=== PATIENT | female | born 1945 | race Asian ===

== ENCOUNTER 2019-05-25 07:51 | Day surgery (SDC) | payer MEDICARE, MEDICAID ==
[2019-05-25] VITALS (8 sets, daily range): BP systolic 113–131; BP diastolic 54–78
[~2019-05-25] VITALS: Ht 167.6 cm; Wt 77.1 kg
[~2019-05-25 07:51] MED LIST: LR 1000ml 1,000 ML IVLG SCH
--- NOTE | 2019-05-25 08:45 | NUR ---
IV fluids started by Dr. Padron and infusing well.
--- NOTE | 2019-05-25 08:47 | Short Stay Surgery H&P ---
History of Present Illness History of Present Illness Chief Complaint Gastro-esophageal reflux and screening colonoscopy. 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 Endoscopies with possible biopsy Preop Interventions None Summary of Findings See the reports Attestation Are the patient's medical conditions optimized for surgery? Attestation Response: yes Tyler Mccarty MD May 25, 2019 08:47
--- NOTE | 2019-05-25 08:48 | Pre-Procedure Note/Attestation ---
Pre-Procedure Note/Attestation Complete Prior to Procedure Planned Procedure: left Procedure Narrative: Examiantion of the upper and the lower GI tract via endoscopy Indications for Procedure Pre-Operative Diagnosis: R/O Gastritis/esophagitis/colon polyp Attestation I attest that I discussed the nature of the procedure; its benefits; risks and complications; and alternatives (and the risks and benefits of such alternatives ), prior to the procedure, with the patient (or the patient's legal players club representative). I attest that, if there was a reasonable possibility of needing a blood transfusion, the patient (or the patient's legal players club representative) was given the [facility] standardized written summary, pursuant to the [employer] Blood Safety Act ([place] Health and Safety Code # 1645, as amended). I attest that I re-evaluated the patient just prior to the surgery and that there has been no change in the patient's H&P, except as documented below: Tyler Mccarty MD May 25, 2019 08:48
[2019-05-25] MEDS ORDERED: ENBREL50 MG/1 M1 SUBQ (08:51)
[2019-05-25] MEDS ORDERED: FOLIC ACID1 MG ORAL (08:52)
[2019-05-25] MEDS ORDERED: CARVEDILOL3.125 MG ORAL (08:53)
[2019-05-25] MEDS ORDERED: AMLODIPINE BESY10 MG ORAL (08:57)
[2019-05-25] MEDS ORDERED: MELOXICAM15 MG PO (08:57)
[2019-05-25] MEDS ORDERED: METHOTREXATE2.5 MG PO (08:58)
[2019-05-25] MEDS ORDERED: CICLOPIROX 8%34.6 ML TP (08:59)
[2019-05-25] MEDS ORDERED: fentaNYL 100 mcg/2 mL IV ONE ×2 (09:00)
[2019-05-25] MEDS ORDERED: Midazolam 2mg/2ml Inj ONE (09:00)
[2019-05-25] MEDS ORDERED: LR 1000ml ONE (09:00)
[2019-05-25] MEDS ORDERED: Propofol 200mg/20ml IV ONE (09:00)
--- NOTE | 2019-05-25 09:14 | Anethesia Preoperative Eval ---
Anesthesia Pre-op PMH/ROS General Date of Evaluation: May 25, 2019 Time of Evaluation: 08:40 Anesthesiologist: Vito ASA Score: ASA 2 Mallampati Score Class I : Soft palate, uvula, fauces, pillars visible Class II: Soft palate, uvula, fauces visible Class III: Soft palate, base of uvula visible Class IV: Only hard plate visible Mallampati Classification: Class II Surgeon: Curly Diagnosis: Abdominal pain Surgical Procedure: EGD Colonoscopy Anesthesia History: none Family History: no anesthesia problems Allergies: Coded Allergies: No Known Allergies (Unverified , 05/24/19) Medications: see eMAR Patient NPO?: Yes Past Medical History Cardiovascular: Reports: HTN; Denies: CAD, UT, valve dz, arrhythmia, other Pulmonary: Denies: asthma, COPD, KAYE, other Gastrointestinal/Genitourinary: Reports: GERD; Denies: CRI, ESRD, other Neurologic/Psychiatric: Reports: depression/anxiety; Denies: dementia, CVA, TIA, other Endocrine: Denies: DM, hypothyroidism, steroids, other HEENT: Reports: cataract (L), cataract (R) - s/p Sx Hematology/Immune: Denies: anemia, DVT, bleeding disorder, other Musculoskeletal/Integumentary: Denies: OA, RA, DJD, DDD, edema, other PMH Narrative: As above PSxH Narrative: Hysterectomy bilateral cataracts Anesthesia Pre-op Phys. Exam Physician Exam Last Vital Signs Date Time Temp Pulse Resp B/P (MAP) Pulse Ox O2 Delivery O2 Flow Rate FiO2 05/25/19 08:48 97.0 83 18 131/78 98 Room Air Constitutional: NAD Neurologic: CN 2-12 intact Cardiovascular: RRR, no M/R/G Respiratory: CTA Gastrointestinal: S/NT/ND Airway Exam Mallampati Score: Class II MO: full Neck: flexible ROM: full Dentures: no upper, no lower Anesthesia Pre-op A/P Risk Assessment & Plan Assessment: ASA 2 Plan: Catrachito Gomez MD May 25, 2019 09:14
[2019-05-25] MEDS ORDERED: fentaNYL 100 mcg/2 mL IV PRN (09:15)
--- NOTE | 2019-05-25 09:23 | Endoscopy Procedure Note ---
Endoscopy Procedure Note General Indication for Procedure: GERDs anad abdominal pains , screening colonoscopy Procedures Performed: EGD - Mild gastritis and possible debbie esophagus, biopsy obtained from gastric body with esopohageal brushing., colonoscopy - Internal hemorrhoids;otherwise normal total colosnoscopy upto the base of the cecum. Specimen: yes Pt Tolerated Procedure Well: Yes Estimated Blood Loss: none Anesthesia Anesthesiologist: Dr. Padron Anesthesia: moderate sedation Medications Medication Given: see anesthesia record Inserted Devices Implant(s) used?: No Quality Quality of Bowel Preparation: Excellent Did scope reach the cecum?: Yes Was there any complications?: No GI Core Measures 50 yrs or older w/o bx or poly: Yes 10yrs. F/U recommended: Yes If not recommended, why?: 18 years or older w/prev. colo: No <3yrs. since last colonoscopy: No Med reason:<3 yrs.: System Reason:<3 yrs.: Last colonoscopy >= to 3yrs: Yes Tyler Mccarty MD May 25, 2019 09:23
--- NOTE | 2019-05-25 09:24 | Discharge Instructions ---
Discharge Instructions Discharge Instructions Follow up with: Visit the doctor in office after 2 weeks For Congestive Heart Failure Reminder Report to your physician any weight gain of 5 pounds or more in one week. Tyler Mccarty MD May 25, 2019 09:24
--- NOTE | 2019-05-25 09:33 | Immediate Post-Op Evaluation ---
Immediate Post-Op Evalulation Immediate Post-Op Evalulation Procedure: EGD Colonoscopy Date of Evaluation: May 25, 2019 Time of Evaluation: 09:32 IV Fluids: 600 Blood Products: none Estimated Blood Loss: none Urinary Output: none Blood Pressure Systolic: 116 Blood Pressure Diastolic: 72 Pulse Rate: 68 Respiratory Rate: 20 O2 Sat by Pulse Oximetry: 98 Temperature (Fahrenheit): 97.6 Pain Score (1-10): 1 Nausea: No Vomiting: No Complications none Patient Status: reacts, patent, none Hydration Status: adequate Catrachito Padron MD May 25, 2019 09:33
[2019-05-25] MEDS ORDERED: LR 1000ml 1,000 ML IVLG SCH (10:00)
--- NOTE | 2019-05-25 10:32 | 48 Hour Post Anesthesia Eval ---
Post Anesthesia Evaluation Procedure: EGD Colonoscopy Date of Evaluation: May 25, 2019 Time of Evaluation: 10:30 Blood Pressure Systolic: 116 0: 74 Pulse Rate: 68 Respiratory Rate: 20 Temperature (Fahrenheit): 97.6 O2 Sat by Pulse Oximetry: 98 Airway: patent Nausea: No Vomiting: No Pain Intensity: 1 Hydration Status: adequate Cardiopulmonary Status: stable Mental Status/LOC: patient returned to baseline Follow-up Care/Observations: n/a Post-Anesthesia Complications: none Follow-up care needed: ready to discharge Catrachito Padron MD May 25, 2019 10:32
--- NOTE | 2019-05-25 17:45 | Operative Note - Dictated ---
DATE OF OPERATION: 05/25/2019 SURGEON: Tyler Mccarty M.D. REFERRING PHYSICIAN: Dr. Nba Ricardo. PROCEDURE: Esophagogastroduodenoscopy with biopsy. PREOPERATIVE DIAGNOSIS: History of abdominal pain and gastroesophageal reflux. POSTOPERATIVE DIAGNOSIS: Evidence of mild gastritis. Biopsy was taken per random from gastric body and possible Catherine esophagus. Brushing of the esophagus was done. MEDICATION USED: Per anesthesiologist, Dr. Padron. INSTRUMENT: GIF Olympus upper GI video endoscope. DESCRIPTION OF PROCEDURE: The patient after arriving in the endoscopy unit, was told about risks and benefits of the procedure, which she accepted and signed informed consent. At this time, she was put on the left lateral decubitus position. After adequate IV sedation, the scope was gently passed through the esophagus and gradually advanced towards gastroesophageal junction. There was evidence of the exudative material over the esophagus, which was mostly washed out. However, there was some remnants of this whitish exudative material still seen to be involving the wall of the esophagus, which raised the question of possibility of underlying Catherine. Therefore, brushing of esophagus was done to basically rule out this condition. However, there was no any evidence of ulceration, stricture, varices, etc. GE junction also was completely within normal limits without evidence of hiatal hernia or Silva's. Scope at this time was advanced into the stomach. Gastric cavity was distended and gradually the areas of the fundus and the body and the antrum were examined. There was evidence of minimal gastritis in the body of the stomach, which was biopsied and the scope was subsequently passed through the pylorus, first and second portion of duodenum were examined, which looked normal. At this time, the scope was pulled back into the stomach. A retroflexion maneuver was applied. The area of the gastroesophageal junction was examined at a closer fashion, which revealed no particular other abnormalities. Finally, the scope was pulled out and the procedure was terminated. The patient tolerated the procedure well. Tyler Mccarty M.D. DR: SARAH JOB#: [id number] CC:
--- NOTE | 2019-05-25 18:00 | Operative Note - Dictated ---
DATE OF OPERATION: 05/25/2019 PROCEDURE: Total colonoscopy. PREOPERATIVE DIAGNOSIS: Screening colonoscopy. POSTOPERATIVE DIAGNOSIS: Minimal internal hemorrhoids, otherwise complete normal total colonoscopy up to the base of the cecum as examined. SURGEON: Tyler Mccarty M.D. REFERRING PHYSICIAN: . ANESTHESIOLOGIST: Catrachito Padron M.D. INSTRUMENT: GIF Olympus video colonoscope. DESCRIPTION OF PROCEDURE: The patient after arriving in the endoscopy unit, was told about risks and benefits of the procedure, which she accepted and signed informed consent. At this time, she was put in the left lateral decubitus position. After adequate IV sedation, the scope was gently passed through the anal area which revealed evidence of hemorrhoidal tag and minimal internal hemorrhoids of no great significance and there were not friable. The rest of the rectum also looked completely normal. At this time, the scope was gradually passed through somewhat redundant left colon reaching to the splenic flexure, transverse colon, hepatic flexure, and finally was guided into the right colon all the way to the base of the cecum. All these areas remained to be completely within normal limits and there was no any evidence of polyps, tumors, stricture, ulceration, inflammatory process etc. Upon reaching to the base of the cecum, the scope was gradually pulled out within 6 minutes, which revealed no other findings. The colon cleanup was excellent and the patient tolerated the procedure well and left the endoscopy room in a good condition. Tyler Mccarty M.D. DR: EMILIANO JOB#: [id number] CC:
== END 2019-05-25 11:00 | disposition home or self-care (01) ==
LOC: GAS 07:51
DX: Z12.11 Encounter for screening for malignant neoplasm of colon (principal); K64.8 Other hemorrhoids; R10.9 Unspecified abdominal pain; I10 Essential (primary) hypertension; M19.90 Unspecified osteoarthritis, unspecified site; F32.9 Major depressive disorder, single episode, unspecified; F41.9 Anxiety disorder, unspecified; Z90.710 Acquired absence of both cervix and uterus; K21.0 Gastro-esophageal reflux disease with esophagitis; K29.50 Unspecified chronic gastritis without bleeding; B96.81 Helicobacter pylori [H. pylori] as the cause of diseases classified elsewhere
CPT/HCPCS: 43239; G0121; J2250; J2704; J3010; 94003; 94150